=== PATIENT | male | born 1960 | race African-American/Black ===

== ENCOUNTER 2016-07-10 13:50 | Emergency (ER) | payer BC ==
[2016-07-10] MEDS ORDERED: ASPIRIN TABLET 325 MG TAB ONE (13:52)
[2016-07-10] MEDS ORDERED: ASPIRIN TABLET 325 MG TAB PO ONE (13:52)
[2016-07-10] MEDS ORDERED: NITROGLYCERIN 0.4 MG 25 EA TAB SL ONE ×2 (13:52)
[2016-07-10] MEDS ORDERED: KETOROLAC TROMETHAMINE INJ 30 MG/ML VIAL IV ONE (14:03)
--- NOTE | 2016-07-10 14:06 | ED.PDOC ---
History of Present Illness - General Chief Complaint: Chest Pain/CT Time Seen by Provider: 07/10/16 14:01 Source: patient Exam Limitations: no limitations Additional Information: PT C/O PAIN TO L CHEST ONSET LAST PM. NO RADIATION, NO SOB, NO DIAPH. SHARP. CONSTANT - History of Present Illness Timing/Duration: other - YESTERDAY Severity: moderate Improving Factors: nothing Associated Symptoms: denies symptoms Allergies/Adverse Reactions: Allergies NO KNOWN ALLERGY Allergy (Verified 07/10/16 14:11) Home Medications: Ambulatory Orders Aspirin 81 mg PO DAILY #0 tab 05/03/12 Indomethacin 50 mg PO TID PRN #14 cap 07/10/16 Review of Systems - Review of Systems Constitutional: Denies: chills, fever EENTM: Denies: eye pain, blurred vision Respiratory: Denies: cough, short of breath, wheezing Cardiology: States: chest pain - NO RADIATION. Denies: edema, palpitations, syncope Gastrointestinal/Abdominal: Denies: abdominal pain, diarrhea, nausea, vomiting Genitourinary: States: no symptoms reported Musculoskeletal: States: no symptoms reported Skin: States: no symptoms reported, other - NO DIAPHORESIS Neurological: States: no symptoms reported Endocrine: States: no symptoms reported Hematologic/Lymphatic: States: no symptoms reported Past Medical History (General) - Patient Medical History Hx Seizures: No Hx Stroke: No Hx Asthma: No Hx of COPD: No Hx Cardiac Disorders: No Hx Congestive Heart Failure: No Hx Pacemaker: No Hx Hypertension: No Hx Diabetes: No Hx MRSA: No - Social History Hx Tobacco Use: Yes Hx Alcohol Use: Yes Hx Substance Use: No Hx Physical Abuse: No Hx Emotional Abuse: No Family Medical History - Family History Father Living Status: Still Living Hx Family Hypertension: Yes Physical Exam - Physical Exam General Appearance: Alert, Other - THIN, MILD DISTRESS DUE TO PAIN Eye Exam: bilateral normal Ears, Nose, Throat: hearing grossly normal, normal ENT inspection Neck: full range of motion, supple, normal inspection Respiratory: lungs clear, normal breath sounds, respiratory distress Cardiovascular/Chest: regular rate, rhythm, no murmur Gastrointestinal/Abdominal: non tender, soft, no organomegaly Back Exam: normal inspection, no CVA tenderness, no vertebral tenderness Extremity: normal range of motion, normal inspection Neurologic: alert, normal mood/affect Skin Exam: normal color, warm/dry Lymphatic: no adenopathy Progress - Progress Progress: 07/10/16 15:39 FEELS BETTER, PAIN IMPROVING 07/10/16 16:27 CONTINUES TO IMPROVE. TROP NEG. - EKG/XRAY/CT EKG: Sinus - NICOLE (57) NL AXIS, NL INTERVALS, NON SPECIFICT T WAS CHANGES, NAIP , OLD ANT WALL CT, NO CHANGE, 06/22/16,COMPARISON XRAY: chest - MILD COPD, SCARLETT Departure - Departure Clinical Impression: Chest wall pain Time of Disposition: 16:27 Disposition: Discharge to Home or Self Care Instructions: DI for Atypical Chest Pain Referrals: Zen Lawrence III, MD [Active Staff] - 1-2 Weeks Prescriptions: Indomethacin 50 mg PO TID PRN #14 cap PRN Reason: Pain Home Medications: Ambulatory Orders Aspirin 81 mg PO DAILY #0 tab 05/03/12 Indomethacin 50 mg PO TID PRN #14 cap 07/10/16
--- NOTE | 2016-07-10 14:18 | RAD ---
EXAM DESCRIPTION: Chest,1 View CLINICAL HISTORY: 56 years Male, CP COMPARISON: May 03, 2012 TECHNIQUE: AP portable chest. FINDINGS: The lungs are mildly hyperexpanded suggesting an element of air trapping or COPD but without focal infiltrate or mass or effusion. Heart size and vascularity appear normal for AP technique and degree of inspiration. No gross bony, hilar, or mediastinal abnormalities are noted. IMPRESSION: Mildly hyperexpanded chest, otherwise normal examination Electronically signed by: Sg Cardozo MD 07/10/2016 2:17 PM CDT
[2016-07-10 16:37] VITALS: O2SAT 96
[2016-07-10 16:38] VITALS: BP 105/73
[2016-07-10 17:39] VITALS: TEMP 98.7
== END 2016-07-10 16:39 | disposition home or self-care (01) ==
LOC: ER 13:50
DX: R07.89 Other chest pain (principal); J44.9 Chronic obstructive pulmonary disease, unspecified; Z87.891 Personal history of nicotine dependence